=== PATIENT | male | born 1940 ===

== ENCOUNTER 2018-12-13 07:47 | Inpatient (IN) | payer SELFPAY ==
[2018-12-13 10:08] VITALS: BMI 27.1
--- NOTE | 2018-12-13 11:43 | PDOC.FPRHP ---
- History of Present Illness Chief Complaint: Left-sided weakness History of Present Illness: HPI and ROS were difficult to obtain due to patient's grandiose and tangential speech, and no formal check-out was completing prior to the patient arriving on the Stroke Floor. However, per the patient, he awoke from sleep suddenly last night - time unknown - following a dream about his daughter, where she told him that he was having a stroke. It was then that he noticed that both his LUE and LLE were weakened from baseline. He stated that he then "walked around the hotel room for hours" until he could feel his strength return, at which time he called his private power truck driver and instructed him to take him to an urgent care clinic. Per the Night Team, he was worked up for a possible stroke and received a CT Head, which was reportedly negative. He was then transferred to [facility] for additional work-up. ED Course: NA - Allergies/Adverse Reactions Allergies Allergy/AdvReac Type Severity Reaction Status Date / Time No Known Allergies Allergy Verified 12/13/18 10:16 - Home Medications Medication Instructions Recorded Confirmed Type Clopidogrel Bisulfate [Plavix] 75 mg PO DAILY 12/13/18 12/13/18 History Tamsulosin HCl [Flomax] 0.4 mg PO DAILY 12/13/18 12/13/18 History - History PMHx: Patient admitted to taking Tamsulosin - possible BPH PSHx: Tonsillectomy (Remote) FHx: Unable to assess. Social: Denies x3. 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 Difficult to fully assess due to patient's grandiose and tangential speech. - Review of Systems ROS unobtainable: due to mental status General: denies: fever/chills, fatigue Eyes: denies: vision changes ENT: reports: nasal congestion Respiratory: denies: cough, shortness of breath Cardiovascular: reports: edema. denies: chest pain, palpitation Gastrointestinal: denies: nausea, vomiting, abdominal pain, GI bleeding Genitourinary: reports: other (Patient admitted to sporadic difficulty voiding) Neurological: reports: weakness. denies: syncope, seizure Psychological: reports: other (When asked about previous psychiatry diagnoses, the patient exlaimed that it was impossible for him to see a psychiatrist because of his position at [employer] - Vital signs BP: [145/95] HR: [72] RR: [16] Tmax: [97.6] Pox: [97]% on [Room] Wt: [75 kg] - Physical Exam Constitutional: NAD, awake, alert and oriented, well developed HEENT: normocephalic and atraumatic, PERRLA, EOMI, conjunctiva clear, no scleral icterus, grossly normal vision, grossly normal hearing, normal nasal mucosa, MMM, good dention Neck: supple, FROM, trachea midline, no LAD, no JVD Chest: no-tender to palpation, no lesions Heart: RRR, normal S1/S2, no murmurs/rubs/gallops, pulses present, no edema Lungs: CTAB, no respiratory distress, good air movement, no rales/rhonchi, no wheezing, no retractions Abdomen: soft, non-tender, bowel sounds present, no masses/distention Musculoskeletal: normal structure, ROM grossly normal Neurological: no focal deficit, CN II-XII intact Skin: no rash/lesions, no jaundice Heme/Lymphatic: no unusual bruising or bleeding, no purpura, no petechia, no LAD Psychiatric: other (Patient made several remarkable statements during interview , such as how he is a trillionaire and how he would donate as much money as needed to the hospital.) FMR H&P: Results - Labs Result Diagrams: 12/13/18 12:50 12/13/18 12:50 FMR H&P: A/P - Plan 1. TIA -Patient's history of unilateral weakness is concerning -No appreciable symptoms present in outside urgent care clinic or on Stroke Floor -Vital signs WNL - physical exam unremarkable -NIH Stroke Scale: 0 -CT Head: Negative -EKG: Pending -CTA Head / Neck: Pending -MRI Brain: Pending -Transthoracic Echo: Pending -Fasting Lipid Panel: Pending -Initiate Artorvastatin 40 mg PO daily -Neuro Consult: Pending 2. BPH, suspected -Home medication regimen unclear - patient admitted to taking a medication that sounded like "Tamsulosix" -Start Tamsulosin 0.4 mg PO daily -Continue to monitor clinically Code: Full Diet: Heart Healthy Low Sodium Activity: Ambulate w/ Assist DVT PPx: SCDs Dispo: Patient's presentation is concerning for TIA but is less clear due to poor history. Admit patient to Stroke Floor and proceed with work-up mentioned above. Expected LOS < 48H. FMR H&P: Upper Level - Pertinent history Pleasant 78 yo M with self reportee h/o prior strokes in 2004 and 2009 without residual deficits presents for stroke like symptoms. Pt reports he awoke this am in hotel room with left sided numbness, tingling and weakness in his hand and some left sided LE weakness. He currently reports that his symptoms have resolved. No CP, SOB, NVDC, fever, chills or other systemic symptoms. No dizziness, lightheadedness, headache or changes in vision. - Pertinent findings ROS: As above PE: GEN: NAD HEENT: NCAT, PERRLA, EOMI, mild conjunctival injection left eye without drainage or discharge CV: RRR No MRG Lungs CTABL no WRR Abd: Soft NTND bsx4 Extremities: MOving all no clubbing cyanosis or edema, pulses 2+ throughout Neuro: CNii-xii intact, no focal deficitsp, sensation intact throughout - Plan Date/Time: 12/13/18 1143 I, Leonid Hoffman DO, have evaluated this patient and agree with findings/ plan as outlined by internal auditor resident. Pertinent changes/additions are listed here. 1) TIA: - ct head negative at outside facility for acute intracranial abnormality - order cta head and neck and MRI to further assess - check am FLP - currently on plavix at home, will cont antiplatelet therapy - check am FLP - start HI statin prior to dc 2) Atherosclerotic disease: - self reported prior strokes without residual deficits - on antiplatelet home medication - cont home meds - add HI statin, check am FLP 3) BPH - on flomax at home - resume Dispo: stable, resume home medications. Check AM FLP and add HI statin. Possible DC to home tomorrow.
[2018-12-13] MEDS ORDERED: hydrALAZINE 20 MG/ML VIAL SLOW IVP PRN (11:44)
[2018-12-13] MEDS ORDERED: Acetaminophen 325 MG TAB PO PRN (11:44)
[2018-12-13] MEDS ORDERED: Senokot S 8.6-50 MG TAB PO PRN (11:44)
[2018-12-13] MEDS ORDERED: Ondansetron ODT 4 MG TAB PO PRN (11:44)
[2018-12-13] MEDS ORDERED: Iopamidol 370 76% 100 ML VIAL ONE (12:00)
[2018-12-13 13:09] LABS: #Eosinphils 0.2 thou/uL (0.0-0.7); #Lymphocytes 1.9 thou/uL (1.20-3.40); #Monocytes 0.4 thou/uL (0.11-0.59); #Neutrophils 4.1 thou/uL (1.40-6.50); %Basophils 0.5 % (0.0-1.0); %Eosinophils 2.6 % (0.0-10.0); %Lymphocytes 28.7 % (21.0-51.0); %Monocytes 5.9 % (0.0-10.0); %Neutrophils 62.2 % (42.0-75.0); Hemoglobin 13.9 g/dL (14.0-18.0); Mean Corpuscular Hemoglobin 31.8 pg (27.0-31.0); Mean Corpuscular Volume 93.5 fL (78.0-98.0); Mean Platelet Volume 7.5 fL (7.4-10.4); Platelet Count 181 thou/uL (130-400); RBC Distribution Width 11.3 % (11.5-14.5); Red Blood Cell (RBC) Count 4.36 mill/uL (4.70-6.10); White Blood Cell (WBC) Count 6.6 thou/uL (4.8-10.8)
[2018-12-13 13:44] LABS: ALT (SGPT) 14 U/L (8-55); AST (SGOT) 20 U/L (5-34); Albumin 4.2 g/dL (3.4-4.8); Alkaline Phosphatase 57 U/L (40-110); Anion Gap 12 mmol/L (10-20); BUN (Urea Nitrogen) 7 mg/dL (8.4-25.7); Bilirubin, Total 0.6 mg/dL (0.2-1.2); Calc. Creatinine Clearance 85 mL/min (70-130); Carbon Dioxide 27 mmol/L (23-31); Chloride 96 mmol/L (98-107); Estimated GFR-MDRD Greater than 90; Globulin 2.5 g/dL (2.4-3.5); Glucose 107 mg/dL (83-110); Potassium 3.7 mmol/L (3.5-5.1); Protein, Total 6.8 g/dL (5.8-8.1); Sodium 131 mmol/L (136-145)
--- NOTE | 2018-12-13 15:38 | CT ---
CTA HEAD WITH AND WITHOUT IV CONTRAST AND 3D REFORMATTED IMAGING: CTA NECK WITH IV CONTRAST AND 3D REFORMATTED IMAGIND VOLUME RENDERIN12/13/2018 11:53 a.m. HISTORY: TIA. COMPARISON: None. FINDINGS: Noncontrast imaging reveals no acute intracranial hemorrhage, mass effect, midline shift or ventricul omegaly. There is a cavum pellucidum et vergae. There is scattered paranasal sinus mucosal inflammation and evidence of prior paranasal sinus surgery. Periosteal thickening of the sinuses does indicate a component of chronic sinusitis. RIGHT CCA: Mild atherosclerotic vascular calcification without significant stenosis. ICA: There is mild focal stenosis at the proximal cervical right ICA due to calcified plaque. Tortuou s course of the right ICA is demonstrated. MCA: No significant stenosis. CECY: No significant stenosis. WHITE METAL CASTER: No significant stenosis. LEFT CCA: Scattered mild atherosclerotic vascular calcification without significant stenosis. ICA: Mild focal stenosis of the proximal aspect of the cervical left ICA and additional scattered elizabeth cification without significant stenosis otherwise demonstrated. MCA: No significant stenosis. CECY: No significant stenosis. WHITE METAL CASTER: No significant stenosis. VERTEBROBASILAR SYSTEM Left Vertebral: Mild vascular calcification without significant stenosiss. Right Vertebral: Mild vascular calcification without significant stenosis. Basilar: No significant stenosis. IMPRESSION: Scattered atherosclerotic vascular calcification without hemodynamically significant stenosis. Transcribed Date/Time: 12/13/2018 3:49 PM
--- NOTE | 2018-12-13 15:44 | MRI ---
EXAM: MRI Brain WO Con PROVIDED CLINICAL HISTORY: TIA. Patient reports tingling in the left fingers were started last night. COMPARISON: None FINDINGS: There are patchy areas of increased FLAIR and T2-weighted signal intensity seen in the periventricula r and subcortical white matter which are nonspecific but likely reflective of chronic small vessel ischemic changes. There is no evidence of restricted diffusion to suggest an acute infarction. Subcen timeter foci of decreased signal intensity are seen in each basal ganglia on gradient echo images which may represent tiny calcifications or less likely focal areas of prior petechial hemorrhage. Mild cerebral and cerebellar volume loss is present. A cavum septum pellucidum et vergae is present w hich is a normal variant. Ventricular system is normal in size, shape, and position for the degree of sulcal atrophy. There is no mass effect or midline shift. Appropriate flow voids are demonstrated at the base of the brain. Mucosal thickening is present in the left maxillary antrum and bilateral ethmoidal air cells with tra ce mucosal thickening in the bilateral frontal sinuses and in each sphenoid sinus. [place] lenses are not visualized. IMPRESSION: 1. No acute intracranial abnormalities demonstrated. 2. Findings likely attributable to chronic small vessel ischemic changes. 3. Mild cerebral and cerebellar volume loss. 4. Mild sinus disease.
--- NOTE | 2018-12-13 16:32 | EKG ---
Test Reason : Blood Pressure : / mmHG Vent. Rate : 076 BPM Atrial Rate : 076 BPM P-R Int : 150 ms QRS Dur : 082 ms QT Int : 380 ms P-R-T Axes : 068 -11 -02 degrees QTc Int : 427 ms Normal sinus rhythm No previous ECGs available Confirmed by DR. Santosh AARON ([id number]) on 12/13/2018 4:31:47 PM Referred By: DUGLAS Confirmed By:DR. Santosh AARON
[2018-12-13] MEDS: Famotidine 20 MG TAB PO SCH (20:19)
[2018-12-13] MEDS ORDERED: Atorvastatin Calcium 40 MG TAB PO SCH (21:00)
[2018-12-13] MEDS ORDERED: Ubidecarenone 50 MG CAP PO SCH (21:00)
[2018-12-14 03:05] VITALS: TEMP 97.6
--- NOTE | 2018-12-14 05:03 | PDOC.FM ---
- Subjective Subjective: Mr. Mitchell reported no overnight events other than poor sleep. Specifically, he denied any chest pain, shortness of breath, headaches, changes in vision or repeat episodes of dizziness. - Objective Vital Signs & Weight: Vital Signs (12 hours) Temp Pulse Resp BP BP Pulse Ox 12/14/18 03:01 97.6 F 70 16 128/75 97 12/13/18 23:52 97.4 F L 63 16 99/68 96 12/13/18 20:00 97.8 F 65 16 123/83 98 Weight Weight 76.232 kg Result Diagrams: 12/14/18 06:05 12/14/18 06:05 EKG Reviewed by me: Yes Radiology Reviewed by me: Yes Phys Exam - Physical Examination Constitutional: NAD HEENT: PERRLA, moist MMs, sclera anicteric, oral pharynx no lesions Neck: no nodes, supple, full ROM Respiratory: no wheezing, no rales, no rhonchi, clear to auscultation bilateral Cardiovascular: RRR, no significant murmur, no rub Gastrointestinal: soft, non-tender, no distention, positive bowel sounds Musculoskeletal: no edema, pulses present Neurological: non-focal, moves all 4 limbs Lymphatic: no nodes Skin: no rash Dx/Plan - Plan Plan: 1. TIA -Patient's history of unilateral weakness is concerning -No appreciable symptoms present in outside urgent care clinic or on Stroke Floor -Vital signs WNL - physical exam unremarkable -NIH Stroke Scale: 0 -CT Head: Negative -EKG: NSR, prior infarct (Age Indeterminate) -CTA Head / Neck: NAF -MRI Brain: NAF -Transthoracic Echo: EF 55-60%, mild Tricuspid/Mitral regurgitation -Initiate Artorvastatin 40 mg PO daily 2. BPH, suspected -Home medication regimen unclear - patient admitted to taking a medication that sounded like "Tamsulosix" -Start Tamsulosin 0.4 mg PO daily -Continue to monitor clinically for signs of urinary retention 3. Preventative Health Care -Patient has poor insight into personal health and is unsure of home medication regimen -Has not seen a PCP in >1.5Y -Fasting Lipid Panel: Tri(77) / Chol(165) / HDL (34) / LDL (116) -CHADSVASc: 5 Points (7.2% Risk of Stroke) - restart Plavix regimen after DC -ASCVD: 26% of CV Event - continue statin therapy after DC -Encourage appropriate follow-up with PCP for grief counseling following daughter's 9M prior Code: Full Diet: Heart Healthy Low Sodium Activity: Ambulate w/ Assist DVT PPx: SCDs Dispo: Patient is currently stable on the Stroke Floor. HPI, ROS, physical exam , imaging and laboratory analysis favor TIA over stroke. Complete risk stratification and DC home with appropriate follow-up with PCP. Encourage grief counseling. Expected LOS < 24H. Addendum - Attending - Attending Attestation Date/Time: 12/14/18 [id number] I personally evaluated the patient and discussed the management with Dr. Valenzuela I agree with the History, Examination, Assessment and Plan documented above with any addition or exceptions noted below - Patient denies any complaints. Symptoms have resolved. Afebrile VSS. A/P: 1) Left sided weakness- rsolved; MRI and CTA negative; echo EF55-60%; mild diastolic dysfunction. PLan to d/c home today. Continue current medications. .
[2018-12-14 06:22] LABS: #Eosinphils 0.4 thou/uL (0.0-0.7); #Lymphocytes 1.9 thou/uL (1.20-3.40); #Monocytes 0.6 thou/uL (0.11-0.59); %Basophils 0.3 % (0.0-1.0); %Eosinophils 6.2 % (0.0-10.0); %Lymphocytes 26.8 % (21.0-51.0); %Monocytes 9.2 % (0.0-10.0); %Neutrophils 57.6 % (42.0-75.0); Hemoglobin 13.4 g/dL (14.0-18.0); Mean Corpuscular HGB CONC 33.9 g/dL (32.0-36.0); Mean Corpuscular Hemoglobin 31.8 pg (27.0-31.0); Mean Platelet Volume 7.7 fL (7.4-10.4); Platelet Count 186 thou/uL (130-400); RBC Distribution Width 11.3 % (11.5-14.5); White Blood Cell (WBC) Count 6.9 thou/uL (4.8-10.8)
[2018-12-14 06:58] LABS: ALT (SGPT) 15 U/L (8-55); AST (SGOT) 17 U/L (5-34); Alkaline Phosphatase 57 U/L (40-110); Anion Gap 11 mmol/L (10-20); BUN (Urea Nitrogen) 8 mg/dL (8.4-25.7); Bilirubin, Total 0.3 mg/dL (0.2-1.2); Calc. Creatinine Clearance 80 mL/min (70-130); Calcium 9.1 mg/dL (7.8-10.44); Carbon Dioxide 29 mmol/L (23-31); Cardiac Risk 4.9 (Less than 4.5); Chloride 98 mmol/L (98-107); Cholesterol 165 mg/dl (< 200 Desired); Estimated GFR-MDRD Greater than 90; Globulin 2.4 g/dL (2.4-3.5); Glucose 103 mg/dL (83-110); HDL Cholesterol 34 mg/dL (>60 Neg Risk); LDL Cholesterol, Calculated 116 mg/dL; Potassium 4.3 mmol/L (3.5-5.1); Protein, Total 6.4 g/dL (5.8-8.1); Sodium 134 mmol/L (136-145); Triglycerides 77 mg/dL (Less than 150)
[2018-12-14] MEDS ORDERED: Prevnar 13-Val Conj/PF 0.5 ML SYRINGE IM ONE (09:00)
[2018-12-14] MEDS ORDERED: Ubidecarenone 50 MG CAP PO SCH (09:00)
[2018-12-14] MEDS ORDERED: Clopidogrel Bisulfate 75 MG TAB PO SCH (09:00)
[2018-12-14] MEDS ORDERED: Enoxaparin Sodium 40 MG/0.4 ML SYRINGE SC SCH (09:00)
[2018-12-14] MEDS ORDERED: FLU VACC TS2019-20(65YR UP)/PF 180 MCG/0.5 ML SYRINGE IM ONE (09:00)
[2018-12-14] MEDS ORDERED: Tamsulosin HCl 0.4 MG CAP PO SCH ×2 (09:00)
[2018-12-14] MEDS: Famotidine 20 MG TAB PO SCH (10:02)
--- NOTE | 2018-12-14 11:08 | PRG ---
DATE OF SERVICE: 12/14/2018 SUBJECTIVE: I have examined the patient. I have discussed the case with Dr. Cesario Valenzuela, and agree with his assessment and plan. Briefly, Mr. Mitchell is a very pleasant 78-year-old man, who evidently had some left-sided weakness starting during the night. He awoke to find that he has noticed both his left upper and left lower extremity felt weak. But, he walked around the hotel room for hours until he felt his strength returning. He called his private dedicated intermodal truck driver and was subsequently brought to an urgent care and then, transferred to [facility]. On exam by the time we saw him, his strength had returned to normal and he had no focal deficits. OBJECTIVE: VITAL SIGNS: His blood pressure is 145/95, his heart rate is 70, and respirations 16. He is afebrile. His room air pulse ox is 97%. GENERAL: He is quite verbose, but otherwise very pleasant, alert, and oriented, no distress. EAR, NOSE, AND THROAT: No erythema or exudate. NECK: Supple. CARDIAC: Heart rhythm is regular. S4 gallop. No murmur or rub noted. No respiratory distress. LUNGS: Clear without rales or wheezes. ABDOMEN: Flat and soft without guarding or rebound. NEUROLOGIC: There are no focal deficits. LABORATORY DATA: CBC; white count 6600, hemoglobin 13.9, and hematocrit 40.8 with an MCV of 93.5. Chemistries; sodium 131, potassium 3.7, chloride 96, bicarb 27, BUN 7, and creatinine 0.76. Liver; AST, ALT, and bilirubin all normal. Lipids; cholesterol 165, LDL 116, HDL 34, and TSH is 1.108. A brain CT done at an outlying area showed no focal deficit. No focal infarct. ASSESSMENT: Transient ischemic attack. PLAN: Admit to proceed with CTA of the head and neck and brain MRI as well as echocardiogram. Job ID: [id number]
[2018-12-14 12:28] VITALS: BP 159/87
--- NOTE | 2018-12-14 22:13 | DIS ---
DATE OF ADMISSION: 12/13/2018 DATE OF DISCHARGE: 12/14/2018 RESIDENT: Cesario Valenzuela MD ADMITTING ATTENDING: German Kay MD DISCHARGE ATTENDING: Khushi Mancini MD CONSULTS: None. PROCEDURES PERFORMED: Transthoracic echocardiogram demonstrating ejection fraction of 55% to 60% with mild mitral regurgitation and mild tricuspid regurgitation. Normal pulmonary artery pressure. EKG demonstrating normal sinus rhythm. Brain MRI demonstrating no acute findings. CT [place] angio with contrast showing no acute findings. PRIMARY DIAGNOSIS: Transient ischemic attack. SECONDARY DIAGNOSES: BPH, history of stroke. DISCHARGE MEDICATIONS: 1. Atorvastatin 40 mg p.o. daily. 2. Clopidogrel 75 mg p.o. daily. DISCONTINUED MEDICATIONS: 1. Acetaminophen 650 mg p.o. q.4 hours. 2. Atorvastatin 40 mg p.o. daily. 3. Clopidogrel 75 mg p.o. daily. 4. CoQ10 of 100 mg p.o. daily. 5. Famotidine 20 mg p.o. b.i.d. 6. Influenza vaccine, pneumococcal 13 Valent conjugated vaccine. 7. Tamsulosin 0.4 mg p.o. daily. HISTORY OF PRESENT ILLNESS/HOSPITAL COURSE: Mr. Mitchell is a pleasant 78-year-old male with a history of two previous strokes supposedly occurring in 2004 and 2009, who presented to the ER from an outside Urgent Care Clinic after a period of left-sided weakness. The patient stated that on the morning of 12/13 at approximately 12:30 in the morning, he woke up after a dream and found that he had left-sided weakness. He tried to walk around his hotel room for several hours until he could feel his strength returning, at which time he called a taxi and presented to a nearby urgent care clinic. He was worked up at the Urgent Care Clinic for a possible stroke. He was outside the tPA window and due to his history of previous strokes, no tPA was given. CT head at that time was read as having no acute findings. However, he was subsequently transferred to [facility] for further evaluation. At that time, he was stable and conversant, with an NIH Stroke Score of 0, and could provide some of his history, although he was difficult to talk with due to mildly tangential thinking. Physical exam was unremarkable. A stroke workup was initiated. He received brain MRI, CTA of head and neck, and echocardiogram and EKG, all of which are mentioned elsewhere in this document. He proceeded to maintain his baseline throughout his hospital stay and was discharged without incident. His vital signs were read as temperature 97.6, pulse 68, respirations 16 per minute, O2 sats 98% on room air, blood pressure 159/87. He had no difficulty tolerating p.o. intake, and similarly had no difficulty voiding or stooling. Additional laboratory panels prior to discharge were read as white blood cell count of 6.9, hemoglobin 13.4, hematocrit 39.5, platelet count 186. Sodium 134, potassium 4.3 , chloride 98, carbon dioxide 29, BUN 8, creatinine 0.81, glucose 103, AST 17, ALT 15, triglycerides 77, cholesterol 165, HDL 34, LDL 116, TSH 1.108. DISPOSITION: Stable. DISCHARGE INSTRUCTIONS: 1. Location: Home. 2. Diet: Heart healthy. 3. Activity: No restrictions. 4. Followup: The patient was encouraged to follow up with his primary care provider in 14 days. As he did not have a primary care provider in the [facility] area, he was encouraged to follow up with [facility]. Additionally, it was noted that he was experiencing a great deal of grief following the of his daughter 9 months prior. He was encouraged to seek additional modalities to treat this symptomatically either with medication or with psychotherapy in an outpatient setting. [id number] [facility]
--- NOTE | 2018-12-15 05:11 | PQF ---
Elio Mitchell ANNA MD [id number] CLINICAL DOCUMENTATION CLARIFICATION FORM: POST DISCHARGE Addendum to original discharge summary date: ____ Late entry note date: __ DATE: 12/15/18 ATTN: Khushi Patel Please exercise your independent, professional judgment in responding to the clarification form. Clinical indicators are provided on the bottom of this form for your review Please check appropriate box(s): TIA TYPE: [ ] TIA due to Bilateral Carotid Artery Stenosis [ ] Small vessel disease of the brain / cerebral vascular disease [ ] Other TIA [ x ]TIA only [ ] Other diagnosis [ ] Unable to determine In addition, please specify: Present on Admission (POA): [ ] Yes [ ] No [ ] Unable to determine For continuity of documentation, please document condition throughout progress notes and discharge summary. Thank You. CLINICAL INDICATORS - SIGNS / SYMPTOMS / LABS H&P p1 12/13 Dr Valenzuela HPI and ORS were difficult to obtain due to pt's grandiose and tangential speech H&P p3 12/13 NIH stroke scale : 0 H&P p3 12/13 Dr Valenzuela Pt presentation is concerning for TIA but is less clear due to poor history CAT scan report p1 12/13 Findings : Right ICA Mild focal stenosis at proximal cervical Right ICA CAT scan report p2 12/13 Left ICA Mild Focal stenosis of proximal aspect of cervical left ICA RISK FACTORS H&P p3 11 TIA H&P p3 11 78 year-old Male H&P p3 11 HX of prior stroke 2004 and 2009 TREATMENT: H&P p3 11 MRI brain H&P p3 12/13 CT angioram APR 19 Atorvastatin 40mg (This form is maintained as a part of the permanent medical record) 2014 [email or web address]. All Rights Reserved [email or web address] [not provided] [email or web address]
== END 2018-12-14 14:47 | disposition home or self-care (01) | DRG 69 ==
LOC: OBSVTOIN 08:33 → 2SE 08:33
PROVIDERS: ADMIT Family Medicine; ATTEND Family Medicine
PROC: 3E0234Z Introduction of Serum, Toxoid and Vaccine into Muscle, Percutaneous Approach (ICD-10-PCS; principal; 2018-12-14)
PROC: 3E02340 Introduction of Influenza Vaccine into Muscle, Percutaneous Approach (ICD-10-PCS; 2018-12-14)
DX: G45.9 Transient cerebral ischemic attack, unspecified (principal); N40.0 Benign prostatic hyperplasia without lower urinary tract symptoms; I08.1 Rheumatic disorders of both mitral and tricuspid valves; Z79.899 Other long term (current) drug therapy; Z79.02 Long term (current) use of antithrombotics/antiplatelets; Z86.73 Personal history of transient ischemic attack (TIA), and cerebral infarction without residual deficits; Z23 Encounter for immunization
CPT/HCPCS: 36415; 70496; 70498; 70551; 80053; 80061; 84443; 85025; 90471; 90662; 90670; 93005; 93010; 93306; G0008; G0009; Q9967